=== PATIENT | female | born 1995 | race African-American/Black ===

== ENCOUNTER 2022-01-03 17:44 | Emergency (ER) | payer MEDICAID ==
[~2022-01-03] VITALS: Ht 162.6 cm; Wt 100.0 kg
[2022-01-03 17:54] VITALS: BP 134/90
== END 2022-01-03 18:48 | disposition left against medical advice (07) ==
LOC: ER 17:44
DX: Z53.21 Procedure and treatment not carried out due to patient leaving prior to being seen by health care provider (principal)